=== PATIENT | female | born 1955 | race African-American/Black ===

== ENCOUNTER 2017-08-13 20:20 | Inpatient (IN) | payer OTHER ==
[~2017-08-13] VITALS: Ht 181.6 cm; Wt 98.2 kg
[~2017-08-13 20:20] MED LIST: ACTIGALL300 MG PO; AMBIEN10 MG PO; BENTYL20 MG PO; CARDIZEM CD120 MG PO; CARDIZEM120 MG PO; COZAAR100 MG PO; CYANOCOBALAM1000 MCG PO; Cardizem CD,Cartia X PO; DILTIAZEM CAP 120; ENDOCET 5-3251 EACH; FOLIC ACID1 MG; FOLIC ACID1 MG PO; FOLIC ACID20 MG PO; Folic Acid PO; HYDROCHLOROTHIA25 MG; HYDROCHLOROTHIA25 MG PO; Hydrodiuril,Oretic,E PO; LIDODERM 5% P1 PATCH; LO-DOSE ASPIRIN81 M1 PO; LYRICA100 MG PO; LYRICA150 MG PO; Lopressor PO; NAPROXEN500 MG; NEURONTIN600 MG PO; NORCO 5/3251 TABLET PO; OMEPRAZOLE20 MG PO; OXYCODONE HCL10 MG PO; OXYCODONE HCL5 MG PO; PRAVACHOL80 MG PO; PRAVASTATIN SOD40 MG; PREDNISONE; PRILOSEC20 MG PO; PRILOSEC40 MG PO; Percocet 5/325,Endoc PO; Pravachol PO; TESSALON PERLE100 MG PO; ZITHROMAX Z-PA250 MG PO; ZOFRAN4 MG PO
[2017-08-13] MEDS ORDERED: DURAGESIC12 MCG TD (20:27)
[2017-08-13] MEDS ORDERED: MELOXICAM15 MG PO (20:31)
[2017-08-13] MEDS ORDERED: VALSARTAN320 MG PO (20:31)
[2017-08-13] MEDS ORDERED: LIPITOR40 MG PO (20:31)
[2017-08-13 20:53] LABS: HEMATOCRIT 39.8 % (36.0-46.0); MCH 27.5 PG (29.0-34.0); MCHC 32.4 G/DL (30.0-36.0); MCV 84.9 FL (83-99); PLATELET COUNT 119 K/uL (156-360); RBC DIS.WIDTH-CV 14.2 % (11.8-14.6); RBC DIS.WIDTH-SD 43.8 % (39-53); RED BLOOD COUNT 4.69 M/uL (3.80-5.20); WHITE BLOOD COUNT 9.6 K/uL (4.1-10.2)
[2017-08-13 21:53] LABS: TROP-I INTERPRETATION NEGATIVE; TROPONIN-I < 0.01 ng/mL (0.0-0.30)
[2017-08-13 21:55] LABS: ALKALINE PHOSPHATASE 157 IU/L (3-129); ANION GAP 15 MEQ/L (2-14); CHLORIDE 104 MEQ/L (99-109); GFR ESTIMATE (CALCULATED) > 59 mL/min/; GLUCOSE 133 mg/dL (70-99); POTASSIUM 3.7 MEQ/L (3.7-5.4); SAMPLE HEMOLYSIS CHECK 0; SAMPLE ICTERIC CHECK 0; SAMPLE LIPEMIA CHECK 0; SODIUM 139 MEQ/L (136-147); TOTAL BILIRUBIN 0.5 MG/DL (0.0-1.0); UREA NITROGEN (BUN) 14 mg/dL (9-23)
[2017-08-13 22:07] LABS: LIPASE > 6000 U/L (1.0-51.0)
[2017-08-13 22:48] LABS: ADD MIUA? YES; BILIRUBIN NEGATIVE; BLOOD SMALL; COLOR STRAW ((YELLOW)); GLUCOSE (STRIP) NEGATIVE; KETONES NEGATIVE; LEUKOCYTES NEGATIVE; NITRITE NEGATIVE; PROTEIN (STRIP) 30; SPECIFIC GRAVITY 1.015 (1.000-1.030); UROBILINOGEN 0.2 MG/DL (0.2-1.0)
[2017-08-13] MEDS ORDERED: ALDACTONE50 MG PO (23:02)
[2017-08-13] MEDS ORDERED: FLUVIRIN 245 MCG/019 IM (23:02)
[2017-08-13] MEDS ORDERED: ATARAX,VISTARIL25 MG PO (23:02)
[2017-08-13 23:03] LABS: EPITHELIAL CELLS 1+ /HPF; MUCUS NONE SEEN /LPF; RED BLOOD CELLS NONE SEEN /HPF (0-5); WHITE BLOOD CELLS NONE SEEN /HPF (0-5)
[2017-08-13 23:04] LABS: BACTERIA RARE /HPF; UCUL ADDED? NO
[2017-08-14] VITALS (10 sets, daily range): BP systolic 160–189; BP diastolic 60–92
[2017-08-14 07:55] LABS: EOSINOPHIL (%) 0.4 % (0-5); HEMATOCRIT 38.1 % (36.0-46.0); IMMATURE GRANULOCYTE (%) 0.1 % (0.0-0.7); INSTRUMENT ABS NEUTROPHIL CT 6.4 K/uL; MCH 27.8 PG (29.0-34.0); MCHC 32.5 G/DL (30.0-36.0); MCV 85.4 FL (83-99); MEAN PLAT.VOLUME 11.3 uM^3 (9.5-12.4); MONOCYTE COUNT 0.5 K/uL (0-0.8); NEUTROPHIL (%) 80.7 % (45-76); NEUTROPHIL COUNT 6.4 K/uL (1.8-6.4); PLATELET COUNT 142 K/uL (156-360); RBC DIS.WIDTH-CV 14.6 % (11.8-14.6); RBC DIS.WIDTH-SD 45.5 % (39-53); RED BLOOD COUNT 4.46 M/uL (3.80-5.20)
[2017-08-14 08:23] LABS: ALKALINE PHOSPHATASE 134 IU/L (3-129); ANION GAP 7 MEQ/L (2-14); CHLORIDE 105 MEQ/L (99-109); GFR ESTIMATE (CALCULATED) > 59 mL/min/; POTASSIUM 4.2 MEQ/L (3.7-5.4); SAMPLE HEMOLYSIS CHECK 0; SAMPLE ICTERIC CHECK 0; SAMPLE LIPEMIA CHECK 0; SODIUM 139 MEQ/L (136-147); TOTAL BILIRUBIN 0.6 MG/DL (0.0-1.0); UREA NITROGEN (BUN) 14 mg/dL (9-23)
[2017-08-14 08:25] LABS: GLUCOSE 90 mg/dL (70-99)
[2017-08-14 13:11] LABS: LIPASE 3831 U/L (1.0-51.0)
[2017-08-15] VITALS (8 sets, daily range): BP systolic 16–188; BP diastolic 72–87
[2017-08-15 08:01] LABS: ALKALINE PHOSPHATASE 118 IU/L (3-129); ANION GAP 11 MEQ/L (2-14); CHLORIDE 109 MEQ/L (99-109); GFR ESTIMATE (CALCULATED) > 59 mL/min/; GLUCOSE 74 mg/dL (70-99); LIPASE 857 U/L (1.0-51.0); POTASSIUM 3.3 MEQ/L (3.7-5.4); SAMPLE HEMOLYSIS CHECK 0; SAMPLE ICTERIC CHECK 0; SAMPLE LIPEMIA CHECK 0; SODIUM 140 MEQ/L (136-147); TOTAL BILIRUBIN 0.9 MG/DL (0.0-1.0); UREA NITROGEN (BUN) 17 mg/dL (9-23)
[2017-08-15 08:16] LABS: EOSINOPHIL (%) 0.7 % (0-5); EOSINOPHIL COUNT 0.1 K/uL (0-0.3); HEMATOCRIT 34.6 % (36.0-46.0); IMMATURE GRANULOCYTE (%) 0.6 % (0.0-0.7); IMMATURE GRANULOCYTE COUNT 0.1 K/uL; INSTRUMENT ABS NEUTROPHIL CT 8.2 K/uL; LYMPHOCYTE COUNT 0.9 K/uL (1.0-2.8); MCH 28.1 PG (29.0-34.0); MCHC 32.7 G/DL (30.0-36.0); MCV 86.1 FL (83-99); MEAN PLAT.VOLUME 11.6 uM^3 (9.5-12.4); MONOCYTE (%) 6.3 % (3-12); MONOCYTE COUNT 0.6 K/uL (0-0.8); NEUTROPHIL (%) 83.1 % (45-76); NEUTROPHIL COUNT 8.2 K/uL (1.8-6.4); PLATELET COUNT 118 K/uL (156-360); RBC DIS.WIDTH-CV 14.8 % (11.8-14.6); RBC DIS.WIDTH-SD 46.7 % (39-53); RED BLOOD COUNT 4.02 M/uL (3.80-5.20); WHITE BLOOD COUNT 9.9 K/uL (4.1-10.2)
[2017-08-16 07:13] LABS: MCH 27.8 PG (29.0-34.0); MCHC 32.6 G/DL (30.0-36.0); MCV 85.2 FL (83-99); MEAN PLAT.VOLUME 11.6 uM^3 (9.5-12.4); PLATELET COUNT 110 K/uL (156-360); RBC DIS.WIDTH-CV 14.9 % (11.8-14.6); RBC DIS.WIDTH-SD 46.2 % (39-53); RED BLOOD COUNT 3.99 M/uL (3.80-5.20); WHITE BLOOD COUNT 9.8 K/uL (4.1-10.2)
[2017-08-16 07:25] VITALS: BP 180/62
[2017-08-16 07:57] LABS: ANION GAP 10 MEQ/L (2-14); CHLORIDE 110 MEQ/L (99-109); GFR ESTIMATE (CALCULATED) > 59 mL/min/; GLUCOSE 88 mg/dL (70-99); LIPASE 82 U/L (1.0-51.0); POTASSIUM 3.3 MEQ/L (3.7-5.4); SAMPLE HEMOLYSIS CHECK 0; SAMPLE ICTERIC CHECK 0; SAMPLE LIPEMIA CHECK 0; SODIUM 142 MEQ/L (136-147); UREA NITROGEN (BUN) 11 mg/dL (9-23)
[2017-08-16 10:50] VITALS: BP 202/86
[2017-08-16 12:09] VITALS: BP 135/61
[2017-08-16 15:37] VITALS: BP 184/78
[2017-08-16 16:48] VITALS: BP 163/71
[2017-08-16 19:59] VITALS: BP 174/78
[2017-08-17 00:42] VITALS: BP 139/65
[2017-08-17 07:10] VITALS: BP 128/60
[2017-08-17 07:22] LABS: HEMATOCRIT 31.8 % (36.0-46.0); MCH 26.7 PG (29.0-34.0); MCHC 31.4 G/DL (30.0-36.0); MCV 84.8 FL (83-99); MEAN PLAT.VOLUME 11.4 uM^3 (9.5-12.4); PLATELET COUNT 129 K/uL (156-360); RBC DIS.WIDTH-SD 46.2 % (39-53); RED BLOOD COUNT 3.75 M/uL (3.80-5.20); WHITE BLOOD COUNT 9.2 K/uL (4.1-10.2)
[2017-08-17 07:46] LABS: ANION GAP 9 MEQ/L (2-14); CHLORIDE 108 MEQ/L (99-109); GFR ESTIMATE (CALCULATED) > 59 mL/min/; GLUCOSE 90 mg/dL (70-99); POTASSIUM 3.7 MEQ/L (3.7-5.4); SAMPLE HEMOLYSIS CHECK 0; SAMPLE ICTERIC CHECK 0; SAMPLE LIPEMIA CHECK 0; SODIUM 141 MEQ/L (136-147); UREA NITROGEN (BUN) 11 mg/dL (9-23)
[2017-08-17] MEDS ORDERED: NIFEDIPINE10 MG PO (12:35)
[2017-08-17] MEDS ORDERED: PANTOPRAZOLE SO40 MG PO (12:37)
== END 2017-08-17 13:14 | disposition home or self-care (01) | DRG 439 ==
LOC: EME → EDBD 20:20 → EDOF 08-14 00:15 → 2EASTP 08-14 00:15 → ENRESERV 08-14 00:19 → 2EASTP 08-14 02:12
PROVIDERS: Hospitalist; Internal Medicine
DX: K85.90 Acute pancreatitis without necrosis or infection, unspecified (principal); B19.10 Unspecified viral hepatitis B without hepatic coma; K21.9 Gastro-esophageal reflux disease without esophagitis; E78.5 Hyperlipidemia, unspecified; E87.6 Hypokalemia; D69.6 Thrombocytopenia, unspecified; I10 Essential (primary) hypertension; I25.10 Atherosclerotic heart disease of native coronary artery without angina pectoris; D25.9 Leiomyoma of uterus, unspecified; F17.200 Nicotine dependence, unspecified, uncomplicated; J45.909 Unspecified asthma, uncomplicated; M19.90 Unspecified osteoarthritis, unspecified site; I44.7 Left bundle-branch block, unspecified; D64.9 Anemia, unspecified; Z90.49 Acquired absence of other specified parts of digestive tract; Z90.10 Acquired absence of unspecified breast and nipple; Z85.3 Personal history of malignant neoplasm of breast; E66.9 Obesity, unspecified; Z68.29 Body mass index [BMI] 29.0-29.9, adult; K76.0 Fatty (change of) liver, not elsewhere classified
CPT/HCPCS: 74176; 80048; 80053; 81003; 83690; 83735; 84484; 85025; 85027; 99281; 99285; C9113; J0360; J1170; J1650; J2270; J2405; J7030; Q0177

== ENCOUNTER 2017-08-18 22:27 | Emergency (ER) | payer OTHER ==
[~2017-08-18] VITALS: Ht 180.3 cm; Wt 97.6 kg
[~2017-08-18 22:27] MED LIST changes: +ALDACTONE50 MG PO; +ATARAX,VISTARIL25 MG PO; +DURAGESIC12 MCG TD; +FLUVIRIN 245 MCG/019 IM; +LIPITOR40 MG PO; +MELOXICAM15 MG PO; +NIFEDIPINE10 MG PO; +PANTOPRAZOLE SO40 MG PO; +VALSARTAN320 MG PO
[2017-08-18 23:46] LABS: CHLORIDE 106 mEq/L (99-109); POTASSIUM 3.3 mEq/L (3.7-5.4); SODIUM 138 mEq/L (136-147)
[2017-08-18 23:48] LABS: GLUCOSE 98 mg/dL (70-99)
[2017-08-18 23:49] LABS: ANION GAP 9 MEQ/L (2-14)
[2017-08-18 23:50] LABS: TOTAL BILIRUBIN 0.8 mg/dL (0.0-1.0)
[2017-08-18 23:51] LABS: ALKALINE PHOSPHATASE 131 IU/L (3-129)
[2017-08-18 23:52] LABS: GFR ESTIMATE (CALCULATED) > 59 mL/min/
[2017-08-18 23:53] LABS: UREA NITROGEN (BUN) 7 mg/dL (9-23)
[2017-08-18 23:55] LABS: LIPASE 121 U/L (1.0-51.0)
[2017-08-19 00:06] LABS: HEMATOCRIT 35.7 % (36.0-46.0); MCH 27.1 PG (29.0-34.0); MCHC 31.1 G/DL (30.0-36.0); MCV 87.1 FL (83-99); RBC DIS.WIDTH-CV 15.2 % (11.8-14.6); RBC DIS.WIDTH-SD 48.9 % (39-53); WHITE BLOOD COUNT 7.2 K/uL (4.1-10.2)
[2017-08-19 00:31] LABS: IMM.PLATELET FRACTION 5.5 (1-7); PLAT.SUFFICIENCY DECREASED; PLATELET CLUMPS PRESENT - PLATELET COUNTS APPEARS DECREASED; PLATELET COUNT UNABLE TO REPORT K/uL (156-360)
[2017-08-19] MEDS ORDERED: PERCOCET 5/31 TABLET PO (01:33)
[2017-08-19] MEDS ORDERED: ZOFRAN ODT4 MG PO (01:33)
[2017-08-19 03:26] LABS: ADD MIUA? YES; BILIRUBIN NEGATIVE; BLOOD SMALL; COLOR YELLOW ((YELLOW)); GLUCOSE (STRIP) NEGATIVE; KETONES 5; LEUKOCYTES NEGATIVE; NITRITE NEGATIVE; PROTEIN (STRIP) 30; SPECIFIC GRAVITY 1.011 (1.000-1.030)
[2017-08-19] MEDS ORDERED: SKELAXIN800 MG PO (03:33)
[2017-08-19 03:34] VITALS: BP 149/97
[2017-08-19 05:03] LABS: BACTERIA RARE /HPF; EPITHELIAL CELLS RARE /HPF; MUCUS TRACE /LPF; RED BLOOD CELLS 0-5 /HPF (0-5); UCUL ADDED? NO; WHITE BLOOD CELLS 0-5 /HPF (0-5)
== END 2017-08-19 03:45 | disposition home or self-care (01) ==
LOC: EME 22:27 → EXP 22:27
DX: K85.90 Acute pancreatitis without necrosis or infection, unspecified (principal); M54.5 Low back pain; J45.909 Unspecified asthma, uncomplicated; E78.5 Hyperlipidemia, unspecified; Z85.3 Personal history of malignant neoplasm of breast; F17.200 Nicotine dependence, unspecified, uncomplicated; Z79.82 Long term (current) use of aspirin
CPT/HCPCS: 72100; 80053; 81003; 83690; 85027; 99281; 99285; J3010

== ENCOUNTER 2017-12-02 02:28 | Inpatient (IN) | payer OTHER ==
[~2017-12-02] VITALS: Ht 180.3 cm; Wt 95.9 kg
[~2017-12-02 02:28] MED LIST changes: +PERCOCET 5/31 TABLET PO; +SKELAXIN800 MG PO; +ZOFRAN ODT4 MG PO
[2017-12-02 03:16] LABS: HEMATOCRIT 39.6 % (36.0-46.0); HEMOGLOBIN 12.7 G/DL (11.9-15.5); MCH 26.7 PG (29.0-34.0); MCHC 32.1 G/DL (30.0-36.0); MCV 83.4 FL (83-99); PLATELET COUNT 166 K/uL (156-360); RBC DIS.WIDTH-SD 42.4 % (39-53); RED BLOOD COUNT 4.75 M/uL (3.80-5.20); WHITE BLOOD COUNT 8.7 K/uL (4.1-10.2)
[2017-12-02 03:31] LABS: CHLORIDE 106 mEq/L (99-109); POTASSIUM 3.8 mEq/L (3.7-5.4); SODIUM 139 mEq/L (136-147)
[2017-12-02 03:33] LABS: GLUCOSE 128 mg/dL (70-99); TOTAL PROTEIN 7.5 g/dL (6.4-8.3)
[2017-12-02 03:35] LABS: TOTAL BILIRUBIN 1.8 mg/dL (0.0-1.0)
[2017-12-02 03:37] LABS: ALKALINE PHOSPHATASE 250 IU/L (3-129); CREATININE 0.9 mg/dL (0.6-1.3); GFR ESTIMATE (CALCULATED) > 59 mL/min/
[2017-12-02 03:38] LABS: AST (GOT) 207 IU/L (2-34); UREA NITROGEN (BUN) 17 mg/dL (9-23)
[2017-12-02 03:40] LABS: ALT (GPT) 127 IU/L (3-49)
[2017-12-02 03:44] LABS: LIPASE > 1055 U/L (1.0-51.0)
[2017-12-02 07:43] LABS: HEMATOCRIT 41.4 % (36.0-46.0); HEMOGLOBIN 13.2 G/DL (11.9-15.5); MCHC 31.9 G/DL (30.0-36.0); MCV 84.7 FL (83-99); PLATELET COUNT 179 K/uL (156-360); RBC DIS.WIDTH-CV 14.3 % (11.8-14.6); RBC DIS.WIDTH-SD 43.7 % (39-53); RED BLOOD COUNT 4.89 M/uL (3.80-5.20); WHITE BLOOD COUNT 9.8 K/uL (4.1-10.2)
[2017-12-02 07:54] VITALS: BP 199/83
[2017-12-02 11:57] VITALS: BP 187/78
[2017-12-02 14:36] LABS: ALBUMIN 3.4 G/DL (3.2-4.8); CHLORIDE 110 MEQ/L (99-109); POTASSIUM 3.7 MEQ/L (3.7-5.4); SODIUM 143 MEQ/L (136-147); TOTAL BILIRUBIN 3.4 MG/DL (0.0-1.0)
[2017-12-02 14:42] LABS: ALKALINE PHOSPHATASE 262 IU/L (3-129); ALT (GPT) 131 IU/L (3-49); AST (GOT) 166 IU/L (2-34); CREATININE 0.7 MG/DL (0.6-1.3); GFR ESTIMATE (CALCULATED) > 59 mL/min/; GLUCOSE 132 mg/dL (70-99); TOTAL PROTEIN 6.6 G/DL (6.4-8.3); UREA NITROGEN (BUN) 17 mg/dL (9-23)
[2017-12-02 16:00] VITALS: BP 180/91
[2017-12-02 16:33] LABS: APPEARANCE CLOUDY ((CLEAR)); BILIRUBIN SMALL; BLOOD NEGATIVE; COLOR AMBER ((YELLOW)); GLUCOSE (STRIP) NEGATIVE; KETONES NEGATIVE; LEUKOCYTES SMALL; NITRITE NEGATIVE; PROTEIN (STRIP) 30
[2017-12-02 18:30] LABS: EPITHELIAL CELLS 3+ /HPF; RED BLOOD CELLS 0-5 /HPF (0-5)
[2017-12-02 18:31] LABS: BACTERIA 2+ /HPF; MUCUS RARE /LPF; UCUL ADDED? YES
[2017-12-02 20:33] VITALS: BP 162/73
[2017-12-03 01:17] VITALS: BP 137/64
[2017-12-03 05:11] VITALS: BP 133/63
[2017-12-03 06:40] LABS: HEMOGLOBIN 14.7 G/DL (11.9-15.5); MCH 26.1 PG (29.0-34.0); MCHC 31.3 G/DL (30.0-36.0); MCV 83.3 FL (83-99); PLATELET COUNT 224 K/uL (156-360); RBC DIS.WIDTH-CV 14.6 % (11.8-14.6); RBC DIS.WIDTH-SD 43.8 % (39-53); RED BLOOD COUNT 5.64 M/uL (3.80-5.20)
[2017-12-03 06:51] LABS: ALBUMIN 2.9 G/DL (3.2-4.8); ALKALINE PHOSPHATASE 274 IU/L (3-129); ALT (GPT) 113 IU/L (3-49); AST (GOT) 96 IU/L (2-34); CHLORIDE 109 MEQ/L (99-109); GLUCOSE 118 mg/dL (70-99); POTASSIUM 3.5 MEQ/L (3.7-5.4); SODIUM 144 MEQ/L (136-147); UREA NITROGEN (BUN) 25 mg/dL (9-23)
[2017-12-03 06:53] LABS: CREATININE 1.6 MG/DL (0.6-1.3); GFR ESTIMATE (CALCULATED) 42 mL/min/; TOTAL BILIRUBIN 8.5 MG/DL (0.0-1.0); TOTAL PROTEIN 5.4 G/DL (6.4-8.3)
[2017-12-03 07:05] LABS: ALBUMIN 2.9 G/DL (3.2-4.8); ALKALINE PHOSPHATASE 278 IU/L (3-129); ALT (GPT) 107 IU/L (3-49); CHLORIDE 111 MEQ/L (99-109); GLUCOSE 117 mg/dL (70-99); LIPASE 2759 U/L (1.0-51.0); POTASSIUM 3.4 MEQ/L (3.7-5.4); SODIUM 142 MEQ/L (136-147); UREA NITROGEN (BUN) 25 mg/dL (9-23)
[2017-12-03 07:06] LABS: AST (GOT) 89 IU/L (2-34); CREATININE 1.6 MG/DL (0.6-1.3); GFR ESTIMATE (CALCULATED) 42 mL/min/; TOTAL BILIRUBIN 8.3 MG/DL (0.0-1.0); TOTAL PROTEIN 5.5 G/DL (6.4-8.3)
[2017-12-03 07:13] LABS: ABS NEUTROPHIL COUNT 16.4; ATYPICAL LYMPHOCYTE 1.7 %; BAND NEUTROPHILS 25.2 % (0-8.0); EOSINOPHIL ABS CT 0; LYMPHOCYTES 0.9 % (15.0-45.0); METAMYELOCYTES 0.9 %; MONOCYTES 10.4 % (0-9.0); OVALOCYTES 1+; PLAT.SUFFICIENCY ADEQUATE; POIKILOCYTOSIS 1+; SEG.NEUTROPHILS 60.9 % (46.0-76.0)
[2017-12-03 08:00] VITALS: BP 120/57
[2017-12-03 12:12] VITALS: BP 123/58
[2017-12-03 17:29] VITALS: BP 130/67
== END 2017-12-03 18:17 | disposition short-term general hospital (02) | DRG 438 ==
LOC: EME → EDBD 02:28 → 4SOUTH 05:42 → EDOF 05:42 → ENRESERV 05:48 → 4SOUTH 07:24
PROVIDERS: Emergency Medicine; Hospitalist; Internal Medicine
DX: K85.90 Acute pancreatitis without necrosis or infection, unspecified (principal); A41.9 Sepsis, unspecified organism; E87.2 Acidosis; R17 Unspecified jaundice; F33.9 Major depressive disorder, recurrent, unspecified; N17.9 Acute kidney failure, unspecified; E66.01 Morbid (severe) obesity due to excess calories; Y84.8 Other medical procedures as the cause of abnormal reaction of the patient, or of later complication, without mention of misadventure at the time of the procedure; J45.909 Unspecified asthma, uncomplicated; I10 Essential (primary) hypertension; F17.210 Nicotine dependence, cigarettes, uncomplicated; E86.0 Dehydration; E78.5 Hyperlipidemia, unspecified; D72.825 Bandemia; D64.9 Anemia, unspecified; I44.7 Left bundle-branch block, unspecified; R00.0 Tachycardia, unspecified; K21.9 Gastro-esophageal reflux disease without esophagitis; Z68.29 Body mass index [BMI] 29.0-29.9, adult; Z90.49 Acquired absence of other specified parts of digestive tract; Z80.9 Family history of malignant neoplasm, unspecified; Z85.3 Personal history of malignant neoplasm of breast; Z90.11 Acquired absence of right breast and nipple; Z88.6 Allergy status to analgesic agent; Z91.14 Patient's other noncompliance with medication regimen
CPT/HCPCS: 36415; 74177; 80048; 80053; 80076; 81003; 83605; 83690; 85025; 85027; 87040; 87086; 99281; 99285; J1650; J2270; J2405; J2543; J7030; J7050; S0028